=== PATIENT | male | born 1965 | race Caucasian/White ===

== ENCOUNTER 2021-01-02 12:01 | Emergency (ER) | payer BC, OTHER ==
[~2021-01-02] VITALS: Ht 170.2 cm; Wt 83.9 kg
[2021-01-02] MEDS ORDERED: KETOROLAC TROMETH 60MG/2ML VIAL IM ONE (20:45)
[2021-01-02] MEDS ORDERED: methylPREDNISolone SOD SUCC 125 MG/2 ML VL IM ONE (20:45)
[2021-01-02 22:56] VITALS: BP 113/68
== END 2021-01-02 23:08 | disposition home or self-care (01) ==
LOC: ER 12:01
DX: M54.6 Pain in thoracic spine (principal); M25.512 Pain in left shoulder; M79.10 Myalgia, unspecified site
CPT/HCPCS: 71101; 72070; 73030; 96372; 99284; J1885; J2930

== ENCOUNTER 2022-09-20 08:56 | Emergency (ER) | payer BC ==
[~2022-09-20] VITALS: Ht 170.2 cm; Wt 84.0 kg
[2022-09-20 08:58] VITALS: BP 142/92
== END 2022-09-20 09:22 ==
LOC: ER 08:58
DX: S30.1XXA Contusion of abdominal wall, initial encounter (principal); E78.5 Hyperlipidemia, unspecified; I10 Essential (primary) hypertension; F10.90 Alcohol use, unspecified, uncomplicated; Z98.890 Other specified postprocedural states; W34.09XA Accidental discharge from other specified firearms, initial encounter; Y93.89 Activity, other specified; Y92.89 Other specified places as the place of occurrence of the external cause; Y99.8 Other external cause status

== ENCOUNTER 2022-09-20 11:41 | Emergency (ER) | payer BC ==
[~2022-09-20] VITALS: Ht 170.2 cm; Wt 84.0 kg
[2022-09-20 12:30] LABS: Basophils # (auto) 0.1 10 ^3/uL (0-0.2); Basophils % (auto) 0.7 % (0.0-2.0); Eosinophils # (auto) 0.3 10 ^3/uL (0-0.8); Eosinophils % (auto) 1.8 % (0.0-7.0); Hematocrit 41.8 % (41.0-53.0); Hemoglobin 13.3 g/dL (13.5-17.5); Lymphocytes % (auto) 13.9 % (10.0-50.0); Mean Corpuscular Hemoglobin 28.2 pg (28.0-32.0); Mean Corpuscular Hgb Conc. 31.9 g/dL (32.0-36.0); Mean Corpuscular Volume 88.6 fL (80.0-100.0); Monocytes # (auto) 0.7 10 ^3/uL (0-1.3); Monocytes % (auto) 5.1 % (0.0-12.0); Neutrophils # (auto) 11.2 10 ^3/uL (1.6-8.6); Neutrophils % (auto) 78.5 % (37.0-80.0); Red Blood Cells 4.72 10^6/uL (4.5-5.90); Red Cell Distribution Width 21.4 % (11.8-14.3); White Blood Cell 14.2 10^3/uL (4.4-10.8)
[2022-09-20 12:53] LABS: Albumin 3.5 g/dL (3.4-5.0); Calcium 8.3 mg/dL (8.5-10.1); Magnesium 2.3 mg/dL (1.6-2.6); Potassium 3.3 mmol/L (3.5-5.1)
[2022-09-20 12:58] LABS: BUN/Creatinine Ratio 16.5 (10.0-20.0); Bilirubin, Total 0.8 mg/dL (0.2-1.0); Total Protein 6.6 g/dL (6.4-8.2)
[2022-09-20 13:02] LABS: INR 1.07 (0.9-1.15); Partial Thromboplastin Time 24.1 SEC (24.5-34.5)
[2022-09-20 13:53] VITALS: BP 150/86
== END 2022-09-20 13:31 ==
LOC: EEVIPCON 11:41 → ER 11:41
DX: R07.89 Other chest pain (principal); E78.5 Hyperlipidemia, unspecified; I10 Essential (primary) hypertension; F10.90 Alcohol use, unspecified, uncomplicated
CPT/HCPCS: 36415; 71045; 80053; 80320; 83735; 83880; 84484; 85025; 85610; 85730; 93005